=== PATIENT | male | born 1980 | race Caucasian/White ===

== ENCOUNTER 2018-05-02 17:46 | Inpatient (IN) | payer OTHER ==
[2018-05-02 18:26] VITALS: BMI 28.5
--- NOTE | 2018-05-02 18:43 | HP ---
CIWA Score Nausea/Vomitin Muscle Tremors: 2 Anxiety: 3 Agitation: 3 Paroxysmal Sweats: 1-Minimal Palms Moist Orientation: 0-Oriented Tacttile Disturbances: 3-Moderate Itch/Numb/Burn Auditory Disturbances: 0-None Visual Disturbances: 0-None Headache: 0-None Present CIWA-Ar Total Score: 15 - Admission Criteria OASAS Guidelines: Admission for Medically Managed Detox: Requires at least one of the followin. CIWA greater than 12 2. Seizures within the past 24 hours 3. Delirium tremens within the past 24 hours 4. Hallucinations within the past 24 hours 5. Acute intervention needed for co occurring medical disorder 6. Acute intervention needed for co occurring psychiatric disorder 7. Severe withdrawal that cannot be handled at a lower level of care (continued vomiting, continued diarrhea, abnormal vital signs) requiring intravenous medication and/or fluids 8. Admission ROS [facility] Chief Complaint: PATIENT PRESENTS WITH BZO AND ETOH WITHDRAWAL SX. Allergies/Adverse Reactions: Allergies Allergy/AdvReac Type Severity Reaction Status Date / Time naloxone Allergy Verified 05/02/18 18:35 History of Present Illness: PATIENT IS FIRST TIME ADMISSION TO [facility]. CURRENTLY A PATIENT AT [facility]. PATIENT REPORTS LAST DOSE OF MTD 230MG DAILY, LAST DOSE TODAY. RN DOSE VERIFICATION PENDING. PATIENT REPORTS HE STARTED DRINKING ETOH AT AGE 10 AND TAKING NON-PRESCRIBED KLONIPIN AT AGE 13. PATIENT DRINKS 8 24 OUNCE BEERS DAILY , LAST DRINK THIS MORNING. PATIENT ALSO TAKES 3 2MG KLONIPINS PER DAY. LAST TIME HE TOOK KLONIPIN WAS TODAY. PATIENTS FIRST DRINK IS UPON WAKING UP, +BINGE DRINKING. +H/O SEIZURES, FALLS AND BLACK OUTS. LAST SEIZURE 2 WEEKS AGO. PATIENT DM, HEPC- UNTREATED, BIPOLAR DISORDER, SCHIZOPHRENIA, PANIC ATTACKS. DENIES SI/HI AND SUICIDE ATTEMPTS. +MARIJUANA USE, UDS +THC, MTD. NEGATIVE BZO. Exam Limitations: No Limitations - Ebola screening Have you traveled outside of the country in the last 21 days: No (N) Have you had contact with anyone from an Ebola affected area: No Have you been sick,other than usual withdrawal symptoms: No Do you have a fever: No - Review of Systems Constitutional: Night Sweats, Changes in sleep EENT: reports: No Symptoms Reported Respiratory: reports: No Symptoms reported Cardiac: reports: No Symptoms Reported GI: reports: Diarrhea, Nausea, Poor Fluid Intake, Abdominal cramping : reports: No Symptoms Reported Musculoskeletal: reports: Joint Pain Integumentary: reports: Sweating Neuro: reports: Numbness, Seizure, Tingling, Tremors Endocrine: reports: No Symptoms Reported Hematology: reports: No Symptoms Reported Psychiatric: reports: Orientated x3, Anxious, Depressed Patient History - Patient Medical History Hx Anemia: No Hx Asthma: Yes Hx Chronic Obstructive Pulmonary Disease (COPD): No Hx Cancer: No Hx Cardiac Disorders: No Hx Congestive Heart Failure: No Hx Hypertension: No Hx Hypercholesterolemia: No Hx Pacemaker: No HX Cerebrovascular Accident: No Hx Seizures: Yes (LAST SEIZURE 2 WEEKS AGO) Hx Dementia: No Hx Diabetes: Yes Hx Gastrointestinal Disorders: No Hx Liver Disease: No Hx Genitourinary Disorders: No Hx Sexually Transmitted Disorders: Yes (CHLAMYDIA TEENAGER) Hx Renal Disease (ESRD): No Hx Thyroid Disease: No Hx Human Immunodeficiency Virus (HIV): No Hx Hepatitis C: Yes (UNTREATED) Hx Depression: Yes Hx Suicide Attempt: No Hx Bipolar Disorder: Yes Hx Schizophrenia: Yes - Patient Surgical History Past Surgical History: Yes Other Surgical History: I AND D OF ABSCESS, RIGHT TESTICLE REMOVAL. Anesthesia Reaction: No - PPD History Previous Implant?: Yes Documented Results: Negative w/o proof PPD to be Administered?: Yes - Smoking Cessation Smoking history: Never smoked Have you smoked in the past 12 months: No Hx Chewing Tobacco Use: No Initiated information on smoking cessation: No - Substance & Tx. History Hx Alcohol Use: Yes Hx Substance Use: Yes Substance Use Type: Alcohol, Marijuana, Prescribed, Tranquilizers - Substances Abused Alcohol Route: Oral Frequency: Daily Amount used: 8 24 OZ BEERS Age of first use: 10 Date of Last Use: 05/02/18 Benzodiazepine (Klonopin) Route: Oral Frequency: Daily Amount used: 6MG Age of first use: 13 Date of Last Use: 05/02/18 Marijuana/Hashish Route: Smoking Frequency: Daily Amount used: 1-2 BLUNTS Age of first use: 13 Date of Last Use: 05/02/18 Family Disease History - Family Disease History Family History: Denies Admission Physical Exam BHS - Vital Signs Vital Signs: Vital Signs - 24 hr 05/02/18 18:21 Temperature 98 F Pulse Rate 94 H Respiratory 18 Rate Blood Pressure 116/73 - Physical General Appearance: Yes: No Apparent Distress, Disheveled, Tremorous, Sweating, Anxious HEENTM: Yes: EOMI, Hearing grossly Normal, Normocephalic, Normal Voice, MAYRA, Pharynx Normal Respiratory: Yes: Chest Non-Tender, Lungs Clear, Normal Breath Sounds, No Respiratory Distress, No Accessory Muscle Use Neck: Yes: No masses,lesions,Nodules, Supple, Trachea in good position Breast: Yes: Breast Exam Deferred Cardiology: Yes: Regular Rhythm, Regular Rate, S1, S2 Abdominal: Yes: Normal Bowel Sounds, Non Tender, Soft Genitourinary: Yes: Within Normal Limits Back: Yes: Normal Inspection, Muscle Spasm Musculoskeletal: Yes: full range of Motion, Joint Stiffness Extremities: Yes: Normal Range of Motion, Non-Tender, Tremors, Swelling Neurological: Yes: construction operations manager II-XII NML intact, Fully Oriented, Alert, Motor Strength 5/5, Normal Response, Depressed Affect Integumentary: Yes: Normal Color, Warm, Moist Lymphatic: Yes: Within Normal Limits - Diagnostic (1) Sedative, hypnotic or anxiolytic use, unspecified with sedative, hypnotic or anxiolytic-induced anxiety disorder Current Visit: Yes Status: Suspected (2) Alcohol dependence with uncomplicated withdrawal Current Visit: Yes Status: Acute (3) Anxiety Current Visit: Yes Status: Chronic (4) Bipolar disorder Current Visit: Yes Status: Chronic Qualifiers: Active/Remission status: remission status unspecified Qualified Code(s): F31.9 - Bipolar disorder, unspecified (5) Diabetes 1.5, managed as type 2 Current Visit: Yes Status: Chronic (6) Methadone maintenance therapy patient Current Visit: Yes Status: Chronic (7) Asthma Current Visit: Yes Status: Chronic Qualifiers: Asthma severity: mild Asthma complication type: unspecified (8) Marijuana dependence Current Visit: Yes Status: Chronic Cleared for Admission S - Detox or Rehab [facility] Level of Care: Medically Managed Detox Regimen/Protocol: Valium S Breath Alcohol Content Breath Alcohol Content: 0 Urine Drug Screen - Results Drug Screen Negative: No Urine Drug Screen Results: THC-Marijuana, MTD-Methadone
[2018-05-02] MEDS ORDERED: IBUPROFEN 400 MG TABLET (FP) PO PRN (19:00)
[2018-05-02] MEDS ORDERED: MAGNESIUM HYDROX 2400MG/30ML ORAL SUSPENSION 30 ML CUP PO PRN (19:00)
[2018-05-02] MEDS ORDERED: ACETAMINOPHEN 325 MG TABLET (FP) PO PRN (19:00)
[2018-05-02] MEDS ORDERED: guaiFENesin/D-METHORPHAN HB 10 ML UNIT-DOSE CUPS PO PRN (19:00)
[2018-05-02] MEDS ORDERED: P-EPHED 60MG/TRIPROLIDI 2.5MG TABLET PO PRN (19:00)
[2018-05-02] MEDS ORDERED: MENTHOL/PHENOL 1 EACH UD MM PRN (19:00)
[2018-05-02] MEDS ORDERED: LOPERAMIDE HCL 2 MG CAPSULE PO PRN (19:00)
[2018-05-02] MEDS ORDERED: MAGNESIUM CITRATE 300 ML BOTTLE PO PRN (19:00)
[2018-05-02] MEDS ORDERED: MAG HYDROX/AL HYDROX/SIMETH 30 ML UNIT-DOSE CUP PO PRN (19:00)
[2018-05-02] MEDS ORDERED: diazePAM 5 MG TABLET PO ONE (19:04)
[2018-05-02] MEDS ORDERED: ALBUTEROL SO4 8 GM HFA INHALER IH PRN (19:12)
[2018-05-02] MEDS ORDERED: MELATONIN 5 MG TABLETS PO PRN (22:00)
[2018-05-02] MEDS: THIAMINE HCL 100 MG TABLET (FP) PO SCH (22:47)
[2018-05-02] MEDS: INSULIN (LEVEMIR) 100 UNITS/ML UNITS SQ SCH (22:53)
[2018-05-02] MEDS: INSULIN SLIDING SCALE (NOVOLOG) 1 VIAL SQ SCH (22:58)
[2018-05-02] MEDS: diazePAM 5 MG TABLET PO SCH (22:59)
[2018-05-03] MEDS: diazePAM 5 MG TABLET PO SCH ×3 (05:23→22:06)
[2018-05-03] MEDS: INSULIN SLIDING SCALE (NOVOLOG) 1 VIAL SQ SCH ×4 (07:29→22:09)
[2018-05-03] MEDS ORDERED: METHADONE HCL 10 MG TABLET PO SCH (08:00)
[2018-05-03] MEDS: diazePAM 5 MG TABLET PO PRN ×2 (09:22→17:08)
[2018-05-03] MEDS ORDERED: METHADONE HCL 10 MG TABLET ONE (09:42)
[2018-05-03] MEDS ORDERED: METHADONE HCL 40 MG DISPERSABLE TABLET ONE (09:42)
[2018-05-03] MEDS: PRENATAL VITAMINS W/ FOLIC ACID TABLET (FP) PO SCH (09:46)
[2018-05-03] MEDS: METHADONE 200 MG, METHADONE 30 MG PO SCH (09:46)
--- NOTE | 2018-05-03 11:07 | PN ---
S CIWA - CIWA Score Nausea/Vomitin Muscle Tremors: 2 Anxiety: 3 Agitation: 3 Paroxysmal Sweats: 2 Orientation: 0-Oriented Tacttile Disturbances: 2-Mild Itch/Numbness/Burn Auditory Disturbances: 1-Very Mild Visual Disturbances: 1-Very Mild Sensitivity Headache: 0-None Present CIWA-Ar Total Score: 16 BHS Progress Note (SOAP) Subjective: Irritability, restlessness, interrupted sleep Objective: 05/03/18 11:06 Vital Signs Temperature 97 F L 05/03/18 09:44 Pulse Rate 92 H 05/03/18 09:44 Respiratory Rate 20 05/03/18 09:44 Blood Pressure 135/90 05/03/18 09:44 O2 Sat by Pulse Oximetry (%) Laboratory Last Values POC Glucometer 132 UNITS (80-120) 05/03/18 06:17 Labs pending Assessment: 05/03/18 11:06 Withdrawal sx Plan: Continue detox
--- NOTE | 2018-05-03 15:16 | PN ---
[facility] Progress Note Note: Patient requested home medication of gabapentin 800mg TID for neuropathy as well cyclobenzaprine 10mg TID for spasms. Pharmacy located in the [facility]( [facility]) closed, unable to verify doses. Gabapentin 400mg TID ordered for neuropathy, cyclopenzaprine 10mg TID PRN ordered. Patient continues to request promethazine 25mg BID, his primary nurse reports no c/o N/V. Staff will continue to monitor for need of promethazine.
--- NOTE | 2018-05-03 16:14 | CONSULT ---
[facility] Psychiatric Consult - Data Date of interview: 05/03/18 Admission source: [facility] Identifying data: First admission to [facility] for this 37 y/o male seeking detoxification treatment, a [address] [place] [address], for alcohol,opioid, cannabis and benzodiazepine (xanax) dependence. Patient is single without dependents, domiciled, unemployed and supported on undisclosed means. Substance Abuse History: Confirmed by patient. Details in current [facility] report : Smoking history: Never smoked. Have you smoked in the past 12 months: No. Hx Chewing Tobacco Use: No. Initiated information on smoking cessation: No. - Substance & Tx. History. Hx Alcohol Use: Yes. Hx Substance Use: Yes. Substance Use Type: Alcohol, Marijuana, Prescribed, Tranquilizers. - Substances Abused. Alcohol. Route: Oral. Frequency: Daily. Amount used: 8 24 OZ BEERS. Age of first use: 10. Date of Last Use: 05/02/18. Benzodiazepine (Klonopin). Route: Oral. Frequency: Daily. Amount used: 6MG. Age of first use: 13. Date of Last Use: 05/02/18. Marijuana/Hashish. Route : Smoking. Frequency: Daily. Amount used: 1-2 BLUNTS. Age of first use: 13. Date of Last Use: 05/02/18 Medical History: Hepatitis C, bronchial asthma, withdrawal-related seizures, diabetes mellitus, past treatment for chlamydia and history of right orchiectomy (reason not known). Psychiatric History: No reported history of psychiatric hospitalizations. Patient affirms that he is currently on methadone maintenance (230 mg/day) at the [facility] program in [facility]. Reportedly diagnosed with Schizoaffective Disorder. Not on any psychotropic medication other than methadone and gabapentin (used for neuropathic pain). Mr Cox denies history of suicide attempts. Physical/Sexual Abuse/Trauma History: Patient denies. Additional Comment: Urine Drug Screen Results: THC-Marijuana, MTD-Methadone. Noted. Mental Status Exam - Mental Status Exam Alert and Oriented to: Time, Place, Person Cognitive Function: Good Patient Appearance: Unkempt, Disheveled (covered with tattoos : arms, forearms, chin) Mood: Nervous, Withdrawn, Irritable Affect: Labile Patient Behavior: Fatigued, Cooperative (marginally cooperative) Speech Pattern: Clear Voice Loudness: Normal Thought Process: Goal Oriented Thought Disorder: Not Present Hallucinations: Denies Suicidal Ideation: Denies Homicidal Ideation: Denies Insight/Judgement: Poor Sleep: Well (as per self-report) Appetite: Good Muscle strength/Tone: Normal Gait/Station: Normal Psychiatric Findings - Problem List ([place] 1, 2,3) (1) Alcohol dependence with uncomplicated withdrawal Current Visit: Yes Status: Acute (2) Opioid dependence on agonist therapy Current Visit: Yes Status: Chronic (3) Marijuana dependence Current Visit: Yes Status: Chronic (4) Sedative, hypnotic or anxiolytic use, unspecified with sedative, hypnotic or anxiolytic-induced anxiety disorder Current Visit: Yes Status: Chronic (5) Substance induced mood disorder Current Visit: Yes Status: Chronic - Initial Treatment Plan Initial Treatment Plan: Psychoeducation. Sleep hygiene. Detoxification. Motivational rounds for promotion of sobriety. AA/NA meetings. Supportive/group therapy. Observation.
[2018-05-03] MEDS: CYCLOBENZAPRINE HCL 10 MG TABLET (FP) PO PRN ×2 (17:08→22:08)
[2018-05-03] MEDS: THIAMINE HCL 100 MG TABLET (FP) PO SCH (22:06)
[2018-05-03] MEDS: GABAPENTIN 400 MG CAPSULE (FP) PO SCH (22:07)
[2018-05-03] MEDS: INSULIN (LEVEMIR) 100 UNITS/ML UNITS SQ SCH (22:08)
[2018-05-04] MEDS ORDERED: METHADONE HCL 40 MG DISPERSABLE TABLET ONE (04:14)
[2018-05-04] MEDS ORDERED: METHADONE HCL 10 MG TABLET ONE (04:14)
[2018-05-04] MEDS: METHADONE 200 MG, METHADONE 30 MG PO SCH (06:05)
[2018-05-04] MEDS: GABAPENTIN 400 MG CAPSULE (FP) PO SCH ×3 (06:09→21:41)
[2018-05-04] MEDS: diazePAM 5 MG TABLET PO PRN ×3 (06:26→20:29)
[2018-05-04] MEDS: INSULIN SLIDING SCALE (NOVOLOG) 1 VIAL SQ SCH ×4 (08:17→21:28)
[2018-05-04] MEDS: PRENATAL VITAMINS W/ FOLIC ACID TABLET (FP) PO SCH (10:01)
[2018-05-04] MEDS: diazePAM 5 MG TABLET PO SCH ×2 (10:01→21:41)
[2018-05-04] MEDS: CYCLOBENZAPRINE HCL 10 MG TABLET (FP) PO PRN (10:01)
[2018-05-04] MEDS: PANTOPRAZOLE 40 MG TABLET (FP) PO SCH (12:12)
--- NOTE | 2018-05-04 12:35 | EKG ---
Test Reason : Blood Pressure : / mmHG Vent. Rate : 094 BPM Atrial Rate : 094 BPM P-R Int : 150 ms QRS Dur : 090 ms QT Int : 390 ms P-R-T Axes : 049 019 055 degrees QTc Int : 487 ms NORMAL SINUS RHYTHM PROLONGED QT ABNORMAL ECG NO PREVIOUS ECGS AVAILABLE Confirmed by PILAR PATE MD ([id number]) on 05/04/2018 12:35:21 PM Referred By: Confirmed By:PILAR PATE MD
--- NOTE | 2018-05-04 16:27 | PN ---
S CIWA - CIWA Score Nausea/Vomitin-Mild Nausea/No Vomiting Muscle Tremors: 2 Anxiety: 2 Agitation: 2 Paroxysmal Sweats: 2 Orientation: 0-Oriented Tacttile Disturbances: 0-None Auditory Disturbances: 0-None Visual Disturbances: 0-None Headache: 0-None Present CIWA-Ar Total Score: 9 BHS Progress Note (SOAP) Subjective: Anxious, tremor, chills, sweating, muscle aches. Patient reports h/o GERD and that zantac doesn't work and is requesting medication. Objective: 05/04/18 16:24 Last Vital Signs Temp Pulse Resp BP Pulse Ox 97 F L 93 H 18 131/89 05/04/18 13:17 05/04/18 13:17 05/04/18 13:17 05/04/18 13:17 Laboratory Tests 05/02/18 05/03/18 05/03/18 19:32 06:17 11:26 POC Glucometer 359 132 258 05/03/18 05/03/18 05/04/18 16:50 21:54 06:07 POC Glucometer 160 172 53 05/04/18 05/04/18 06:57 11:47 POC Glucometer 118 118 Finger sticks noted; Patient refused admission labs (will reorder admission labs ) Assessment: 05/04/18 16:26 Withdrawal symptoms Plan: Continue detox Encouraged PO water intake Repeat admission labs in AM
[2018-05-04] MEDS: INSULIN (LEVEMIR) 100 UNITS/ML UNITS SQ SCH (21:31)
[2018-05-04] MEDS: THIAMINE HCL 100 MG TABLET (FP) PO SCH (21:41)
[2018-05-04 22:43] LABS: URINE APPEARANCE CLEAR; URINE BILIRUBIN NEGATIVE (<2.0 mg/dL); URINE COLOR YELLOW; URINE GLUCOSE (UA) 3+ (NEGATIVE); URINE KETONE NEGATIVE (NEGATIVE); URINE LEUK ESTERASE TRACE (NEGATIVE); URINE NITRITE NEGATIVE (NEGATIVE); URINE PROTEIN 1+ (NEGATIVE); URINE UROBILINOGEN NEGATIVE mg/dL (0.2-1.0)
[2018-05-04 23:05] LABS: EPI CELLS RARE /HPF (FEW); URINE HYALINE CAST 4 /lpf; URINE MUCUS RARE
[2018-05-05] MEDS ORDERED: METHADONE HCL 10 MG TABLET ONE (04:49)
[2018-05-05] MEDS ORDERED: METHADONE HCL 40 MG DISPERSABLE TABLET ONE (04:49)
[2018-05-05] MEDS: GABAPENTIN 400 MG CAPSULE (FP) PO SCH ×3 (05:13→21:25)
[2018-05-05] MEDS: diazePAM 5 MG TABLET PO PRN ×2 (05:13→15:47)
[2018-05-05] MEDS: METHADONE 200 MG, METHADONE 30 MG PO SCH (05:13)
[2018-05-05] MEDS ORDERED: INSULIN SLIDING SCALE (NOVOLOG) 1 VIAL SQ ONE (07:54)
[2018-05-05] MEDS: INSULIN SLIDING SCALE (NOVOLOG) 1 VIAL SQ SCH ×4 (07:58→21:27)
--- NOTE | 2018-05-05 09:58 | PN ---
[facility]HS Progress Note (SOAP) Subjective: less anxious better concentration sleep better at night social with peers on [address] no tremor less sweat Objective: 05/05/18 09:59 Vital Signs Temperature 96.4 F L 05/05/18 09:48 Pulse Rate 112 H 05/05/18 09:48 Respiratory Rate 17 05/05/18 09:48 Blood Pressure 122/88 05/05/18 09:48 O2 Sat by Pulse Oximetry (%) Laboratory Last Values POC Glucometer 251 UNITS (80-120) 05/05/18 05:13 Urine Color Yellow 05/04/18 21:48 Urine Appearance Clear 05/04/18 21:48 Urine pH 6.0 (5.0-8.0) 05/04/18 21:48 Ur Specific [place] 1.015 (1.010-1.035) 05/04/18 21:48 Urine Protein 1+ (NEGATIVE) H 05/04/18 21:48 Urine Glucose (UA) 3+ (NEGATIVE) H 05/04/18 21:48 Urine Ketones Negative (NEGATIVE) 05/04/18 21:48 Urine Blood Negative (NEGATIVE) 05/04/18 21:48 Urine Nitrite Negative (NEGATIVE) 05/04/18 21:48 Urine Bilirubin Negative (<2.0 mg/dL) 05/04/18 21:48 Urine Urobilinogen Negative mg/dL (0.2-1.0) 05/04/18 21:48 Ur Leukocyte Esterase Trace (NEGATIVE) 05/04/18 21:48 Urine WBC (Auto) 1 /hpf (3-5) 05/04/18 21:48 Urine RBC (Auto) 5 /hpf (0-3) 05/04/18 21:48 Ur Epithelial Cells Rare /HPF (FEW) 05/04/18 21:48 Hyaline Casts 4 /lpf 05/04/18 21:48 Urine Mucus Rare 05/04/18 21:48 lab noted the phebotomist was unable to obtain blood today due to "difficulty stick" as per nurse reported Assessment: 05/05/18 10:03 mild withdrawal sx 05/05/18 10:04 diabetes insulin dependent Plan: medically supervised detox
[2018-05-05] MEDS: PRENATAL VITAMINS W/ FOLIC ACID TABLET (FP) PO SCH (10:08)
[2018-05-05] MEDS: PANTOPRAZOLE 40 MG TABLET (FP) PO SCH (10:08)
[2018-05-05] MEDS: diazePAM 5 MG TABLET PO SCH ×2 (10:09→21:25)
[2018-05-05] MEDS ORDERED: hydrOXYzine PAMOATE 50 MG CAPSULE (FP) PO PRN (18:44)
[2018-05-05] MEDS: THIAMINE HCL 100 MG TABLET (FP) PO SCH (21:25)
[2018-05-05] MEDS: CYCLOBENZAPRINE HCL 10 MG TABLET (FP) PO PRN (21:26)
[2018-05-05] MEDS: INSULIN (LEVEMIR) 100 UNITS/ML UNITS SQ SCH (21:28)
[2018-05-06] MEDS ORDERED: METHADONE HCL 10 MG TABLET ONE (04:42)
[2018-05-06] MEDS ORDERED: METHADONE HCL 40 MG DISPERSABLE TABLET ONE (04:42)
[2018-05-06] MEDS: METHADONE 200 MG, METHADONE 30 MG PO SCH (05:25)
[2018-05-06] MEDS: GABAPENTIN 400 MG CAPSULE (FP) PO SCH (05:25)
[2018-05-06 06:17] VITALS: BP 130/82; PULSE 94; TEMP 98.6
[2018-05-06] MEDS: INSULIN SLIDING SCALE (NOVOLOG) 1 VIAL SQ SCH (08:28)
[2018-05-06] MEDS: PANTOPRAZOLE 40 MG TABLET (FP) PO SCH (09:20)
[2018-05-06] MEDS: PRENATAL VITAMINS W/ FOLIC ACID TABLET (FP) PO SCH (09:20)
[2018-05-06] MEDS ORDERED: diazePAM 5 MG TABLET PO SCH (10:00)
--- NOTE | 2018-05-06 11:56 | DS ---
[facility] Detox Discharge Summary Admission Date: 05/02/18 Discharge Date: 05/06/18 - History Present History: Sedative Dependence Additional Comments: 37 years old male admitted on 05/02/18 for benzo withdrawal stabilization completed benzo detox regimen tolerated well alert no acute distress aftercare [facility] - Physical Exam Results Vital Signs: Vital Signs Temperature 98.6 F 05/06/18 06:16 Pulse Rate 94 H 05/06/18 06:16 Respiratory Rate 18 05/06/18 06:16 Blood Pressure 130/82 05/06/18 06:16 O2 Sat by Pulse Oximetry (%) Pertinent Admission Physical Exam Findings: benzo withdrawal sx Vital Signs Temperature 98.6 F 05/06/18 06:16 Pulse Rate 94 H 05/06/18 06:16 Respiratory Rate 18 05/06/18 06:16 Blood Pressure 130/82 05/06/18 06:16 O2 Sat by Pulse Oximetry (%) Laboratory Last Values POC Glucometer 183 UNITS (80-120) 05/06/18 05:27 Urine Color Yellow 05/04/18 21:48 Urine Appearance Clear 05/04/18 21:48 Urine pH 6.0 (5.0-8.0) 05/04/18 21:48 Ur Specific [place] 1.015 (1.010-1.035) 05/04/18 21:48 Urine Protein 1+ (NEGATIVE) H 05/04/18 21:48 Urine Glucose (UA) 3+ (NEGATIVE) H 05/04/18 21:48 Urine Ketones Negative (NEGATIVE) 05/04/18 21:48 Urine Blood Negative (NEGATIVE) 05/04/18 21:48 Urine Nitrite Negative (NEGATIVE) 05/04/18 21:48 Urine Bilirubin Negative (<2.0 mg/dL) 05/04/18 21:48 Urine Urobilinogen Negative mg/dL (0.2-1.0) 05/04/18 21:48 Ur Leukocyte Esterase Trace (NEGATIVE) 05/04/18 21:48 Urine WBC (Auto) 1 /hpf (3-5) 05/04/18 21:48 Urine RBC (Auto) 5 /hpf (0-3) 05/04/18 21:48 Ur Epithelial Cells Rare /HPF (FEW) 05/04/18 21:48 Hyaline Casts 4 /lpf 05/04/18 21:48 Urine Mucus Rare 05/04/18 21:48 lab noted encourage the patient bring in or bring all leb result to aftercare facility or follow up facility - Treatment Hospital Course: Detox Protocol Followed, Detoxed Safely, Responded well, Discharged Condition Good, Rehab Referral Accepted Patient has Accepted a Rehab Referral to: [facility] - Medication Discharge Medications: Ambulatory Orders Gabapentin 800 mg PO DAILY 05/02/18 Insulin Glargine,Hum.rec.anlog [Lantus] 25 unit SQ HS 05/02/18 Promethazine HCl 25 mg PO DAILY 05/02/18 Albuterol Sulfate Inhaler - [Ventolin HFA Inhaler -] 1 puff IH DAILY #1 inhaler 05/05/18 Albuterol Sulfate Inhaler - [Ventolin HFA Inhaler -] 2 puff IH Q4H PRN #1 inhaler 05/05/18 - Diagnosis (1) Sedative, hypnotic or anxiolytic use, unspecified with sedative, hypnotic or anxiolytic-induced anxiety disorder Status: Acute (2) Asthma Status: Chronic Qualifiers: Asthma severity: mild Asthma persistence: intermittent Asthma complication type: unspecified Qualified Code(s): J45.20 - Mild intermittent asthma, uncomplicated (3) GERD (gastroesophageal reflux disease) Status: Chronic Qualifiers: Esophagitis presence: without esophagitis Qualified Code(s): K21.9 - Gastro -esophageal reflux disease without esophagitis (4) Hepatitis C Status: Chronic Qualifiers: Viral hepatitis chronicity: unspecified Hepatic coma status: without hepatic coma Qualified Code(s): B19.20 - Unspecified viral hepatitis C without hepatic coma (5) Substance induced mood disorder Status: Suspected (6) Type 2 diabetes mellitus with hyperglycemia Status: Chronic Qualifiers: Diabetes mellitus joint terminal attack controller insulin use: without joint terminal attack controller use Qualified Code(s): E11.65 - Type 2 diabetes mellitus with hyperglycemia - AMA Did Patient Leave Against Medical Advice: No
== END 2018-05-06 09:05 | disposition home or self-care (01) | DRG 773 ==
LOC: YASAS 17:46 → Y3N 20:04
PROC: HZ2ZZZZ Detoxification Services for Substance Abuse Treatment (ICD-10-PCS; principal; 2018-05-02)
DX: F10.230 Alcohol dependence with withdrawal, uncomplicated (principal); F13.230 Sedative, hypnotic or anxiolytic dependence with withdrawal, uncomplicated; F13.280 Sedative, hypnotic or anxiolytic dependence with sedative, hypnotic or anxiolytic-induced anxiety disorder; F11.20 Opioid dependence, uncomplicated; F12.20 Cannabis dependence, uncomplicated; F19.24 Other psychoactive substance dependence with psychoactive substance-induced mood disorder; F31.9 Bipolar disorder, unspecified; F41.9 Anxiety disorder, unspecified; J45.20 Mild intermittent asthma, uncomplicated; K21.9 Gastro-esophageal reflux disease without esophagitis; B19.20 Unspecified viral hepatitis C without hepatic coma; E11.65 Type 2 diabetes mellitus with hyperglycemia; G62.9 Polyneuropathy, unspecified; G40.909 Epilepsy, unspecified, not intractable, without status epilepticus; Z87.438 Personal history of other diseases of male genital organs; Z79.4 Long term (current) use of insulin
CPT/HCPCS: 81003; 81015; 82962; 93005; 93010